=== PATIENT | male | born 1935 | race Caucasian/White ===

== ENCOUNTER 2022-11-09 10:34 | Outpatient (CLI) | payer OTHER ==
[~2022-11-09] VITALS: Ht 185.4 cm; Wt 70.3 kg
[~2022-11-09 10:34] MED LIST: ACET-75 PO; ALBU8.5H17 INH; ASPI-611 PO; BISA-78 PO; BUDE10.2 INH; COLC0.6T72 PO; CYANOCOBALAMIN; DENO60DI IM; DIGO125T2 PO; DILT90TA22 PO; FERR325T28 PO; FLO0.4C PO; HYDR25TA4 PO; LACT1CAP65 PO; MULT-620 PO; NITR0.4T SL; OMEG-5 PO; PANT-47 PO; PSYL3.4P5 PO; SPIIN INH
[2022-11-09 11:21] LABS: BASOPHILS # (AUTO) 0.1 X10'3 (0-0.2); BASOPHILS % (AUTO) 1.1 % (0-1); EOSINOPHILS # (AUTO) 0.9 X10'3 (0-0.9); EOSINOPHILS % (AUTO) 10.3 % (0-6); HEMATOCRIT 30.2 % (42.0-52.0); HEMOGLOBIN 10.2 g/dl (14.0-17.9); LYMPHOCYTES # (AUTO) 0.9 X10'3 (1.1-4.8); LYMPHOCYTES % (AUTO) 10.9 % (21-51); MEAN CORPUSCULAR HEMOGLOBIN 32.2 PG (27.0-31.0); MEAN CORPUSCULAR HGB CONC 33.7 g/dL (33.0-36.5); MEAN CORPUSCULAR VOLUME 95.7 FL (78-98); MEAN PLATELET VOLUME 7.5 FL (7.4-10.4); MONOCYTES # (AUTO) 0.8 X10'3 (0-0.9); MONOCYTES % (AUTO) 10.1 % (2-12); NEUTROPHILS # (AUTO) 5.7 X10'3 (1.8-7.7); NEUTROPHILS % (AUTO) 67.6 % (42-75); PLATELET COUNT 303 X10'3 (140-440); RED BLOOD COUNT 3.15 X10'6 (4.70-6.10); RED CELL DISTRIBUTION WIDTH 14.8 % (11.5-14.5); WHITE BLOOD COUNT 8.4 X10'3 (4.5-11.0)
[2022-11-09 11:34] LABS: APTT 36 SECONDS (22-32); PROTHROMBIN TIME 10.9 SECONDS (9.0-12.0)
[2022-11-09 11:38] LABS: ALANINE AMINOTRANSFERASE 26 U/L (12-78); ALBUMIN 3.2 G/DL (3.4-5.0); ALBUMIN/GLOBULIN RATIO 0.8 (1.1-1.5); ALKALINE PHOSPHATASE 98 IU/L (46-116); ANION GAP 10 (8-16); ASPARTATE AMINO TRANSFERASE 26 U/L (10-37); BILIRUBIN,TOTAL 0.5 MG/DL (0.1-1.0); BLOOD UREA NITROGEN 29 MG/DL (7-18); CHLORIDE 106 MMOL/L (99-107); CREATININE 1.16 MG/DL (0.60-1.10); GLUCOSE 100 MG/DL (70-104); SODIUM 141 MMOL/L (135-145); TOTAL CARBON DIOXIDE 25.1 MMOL/L (24-32); eGFR 59 ML/MIN
[2022-11-09 11:45] LABS: PRO BRAIN NATRIURETIC PEPTIDE 532 PG/ML (0-450)
[2022-11-09] MEDS ORDERED: IODIXANOL 320 MG/ML INFUS..BTL 100ML IV ONE (12:10)
[2022-11-09] MEDS ORDERED: albuterol 2.5 MG/3 ML nebule NEB ONE (13:20)
[2022-11-09 13:36] LABS: ABG BASE EXCESS -1.8 mmol/L (-2.0-2.0); ABG HCO3 21.6 mmol/L (22.0-26.0); ABG OXYGEN SATURATION 94.9 % (94-97); ABG PCO2 (T) 32.4 mmHg (35.0-48.0); ABG PH (T) 7.442 (7.340-7.440); ABG PO2 (T) 79.4 mmHg (75.0-100.0); ALLEN'S TEST POSITIVE; FCOHb 0.3 % (0.0-3.9); FHHb 5.1 % (0.0-5.0); FMetHb 0.3 % (0.0-1.5); FO2Hb 94.3 % (94-97); MODE ROOM AIR; TOTAL HEMOGLOBIN 11.3 G/dl (14.0-17.9)
[2022-11-09 13:49] VITALS: PULSE 70; RESP 18; O2SAT 95
== END 2022-11-09 23:59 | disposition home or self-care (01) ==
LOC: RAD 10:34
PROVIDERS: ATTEND Internal Medicine Cardiovascular Disease
DX: I35.0 Nonrheumatic aortic (valve) stenosis (principal); R06.02 Shortness of breath; I65.29 Occlusion and stenosis of unspecified carotid artery; R94.2 Abnormal results of pulmonary function studies; I25.10 Atherosclerotic heart disease of native coronary artery without angina pectoris; M47.814 Spondylosis without myelopathy or radiculopathy, thoracic region; M19.012 Primary osteoarthritis, left shoulder; M19.011 Primary osteoarthritis, right shoulder; Z96.643 Presence of artificial hip joint, bilateral; Z98.890 Other specified postprocedural states
CPT/HCPCS: 36415; 36600; 71046; 71275; 74174; 75572; 80053; 82803; 83880; 85018; 85025; 85610; 85730; 94060; 94727; 94729; 94760; J3490; Q9967; 76377

== ENCOUNTER 2022-12-13 11:08 | Day surgery (SDC) | payer OTHER ==
[~2022-12-13] VITALS: Ht 185.4 cm; Wt 70.8 kg
[2022-12-13] MEDS ORDERED: fentaNYL/PF 50MCG/1 ML 2ML syringe IV ONE (11:35)
[2022-12-13] MEDS ORDERED: MIDAZolam 1mg/ml 10ml vial IV ONE (11:35)
[2022-12-13] MEDS ORDERED: normal saline 1000ml 1,000 ML IV SCH (11:35)
[2022-12-13] MEDS ORDERED: SENN-263 PO (11:40)
[2022-12-13] MEDS ORDERED: DILT120T3 PO (11:40)
[2022-12-13] MEDS ORDERED: POLY17PO10 PO (11:40)
[2022-12-13] MEDS ORDERED: FLO0.4C PO (11:40)
[2022-12-13 11:45] VITALS: BP 132/54; PULSE 65; RESP 16; TEMP 98.2; O2SAT 95
[2022-12-13 13:21] VITALS: BP 128/105; PULSE 65; RESP 21; O2SAT 97
[2022-12-13 13:23] VITALS: BP 141/67; PULSE 65; RESP 21; O2SAT 98
[2022-12-13 13:25] VITALS: BP 132/58; PULSE 65; RESP 12; O2SAT 98
[2022-12-13 13:27] VITALS: RESP 16; O2SAT 98
[2022-12-13 14:09] VITALS: BP 141/57; PULSE 65; RESP 12; O2SAT 94
== END 2022-12-13 14:25 | disposition home or self-care (01) ==
LOC: SSTAY O 11:08
PROVIDERS: ATTEND Student in an Organized Health Care Education/Training Program
DX: I08.3 Combined rheumatic disorders of mitral, aortic and tricuspid valves (principal); I25.10 Atherosclerotic heart disease of native coronary artery without angina pectoris; I47.1 Supraventricular tachycardia; I10 Essential (primary) hypertension; E78.5 Hyperlipidemia, unspecified; M19.90 Unspecified osteoarthritis, unspecified site; I48.0 Paroxysmal atrial fibrillation; I44.1 Atrioventricular block, second degree; I65.29 Occlusion and stenosis of unspecified carotid artery; I95.1 Orthostatic hypotension; Z85.46 Personal history of malignant neoplasm of prostate; Z95.0 Presence of cardiac pacemaker; Z98.890 Other specified postprocedural states; Z88.8 Allergy status to other drugs, medicaments and biological substances; Z79.899 Other long term (current) drug therapy
CPT/HCPCS: 93308; 93325; 94760; J7030; A4620